=== PATIENT | male | born 1965 | race Caucasian/White ===

== ENCOUNTER 2024-04-07 14:01 | Outpatient (RCR) | payer BC, SELFPAY | END 2024-04-07 23:59 | disposition home or self-care (01) | LOC: ROT 14:01 | PROVIDERS: ATTENDING PHYSICIAN Orthopaedic Surgery | DX: M75.21 Bicipital tendinitis, right shoulder (principal); Z73.6 Limitation of activities due to disability | CPT/HCPCS: 97010; 97035; 97110; 97166; 97535 ==